=== PATIENT | female | born 1990 | race Asian ===

== ENCOUNTER 2023-09-02 09:11 | Outpatient (REF) | payer OTHER, SELFPAY ==
--- NOTE | ~2023-09-02 | US_ITS ---
EXAMINATION: US PELVIS CLINICAL INFORMATION: Long IUD string on exam. Assess IUD position LMP: Approximately one month prior COMPARISON: None available. TECHNIQUE: Ultrasound of the pelvis is performed using both transabdominal and transvaginal transducers along with Doppler. Transvaginal imaging is performed due to inadequate visualization transabdominally. FINDINGS: Uterus: The uterus is anteverted and measures 8.0 x 3.6 x 5.1 cm. No focal fibroid. The endometrial thickness is 0.4 cm. The IUD appears in proper position. Adnexa: Both ovaries are visualized. There is normal color flow to the adnexa. There is no ovarian torsion. Right ovary measures 5.2 x 3.0 x 4.5 cm. Volume 37.0 mL. 2.4 x 1.7 x 2.6 cm mildly complex cyst is seen in the right ovary. This is possibly hemorrhagic in origin. Left ovary measures 3.3 x 1.7 x 1.8 cm. Volume 5.2 mL. A small amount of free fluid seen within the cul-de-sac. US/US pelvic and transvaginal IMPRESSION: 1. Normal uterus and left ovary. 2. The IUD appears in proper position. 3. 2.6 cm mildly complex right ovarian cyst. This is possibly hemorrhagic in origin. Follow-up in 4-6 weeks after the patient's next menses could be performed.
== END 2023-09-02 09:12 | disposition home or self-care (01) ==
LOC: HO.UMASIMG 09:11
PROVIDERS: Visit Provider Nurse Practitioner Women's Health
DX: T83.32XA Displacement of intrauterine contraceptive device, initial encounter (principal)
CPT/HCPCS: 76830; 76856

== ENCOUNTER 2023-10-05 08:44 | Outpatient (REF) | payer OTHER, SELFPAY ==
--- NOTE | ~2023-10-05 | US_ITS ---
EXAMINATION: US PELVIS CLINICAL INFORMATION: Follow up right ovarian cyst, last menstrual period 09/15/2023. COMPARISON: None available. TECHNIQUE: Ultrasound of the pelvis is performed using both transabdominal and transvaginal transducers along with Doppler. Transvaginal imaging is performed due to inadequate visualization transabdominally. FINDINGS: Uterus is anteverted and measures 7.4 x 4.6 x 6.[address] within the endometrial cavity. No significant free fluid. Right ovary seen only on transabdominal ultrasound images and measures 3.0 x 1.5 by 2.5 cm, volume 5.9 mL Left ovary measures 2.2 x 3.6 x 2.6 cm, volume 107.7 mL. 1.2 x 1.6 x 1.3 cm complex left ovarian cyst appears diffusely heterogeneous with peripheral vascularity of indeterminate etiology. Recommend followup ultrasound in 6-8 weeks. US/US pelvic and transvaginal IMPRESSION: 1. IUD in place within the endometrial cavity. 2. 1.6 cm complex left ovarian cyst appears diffusely heterogeneous with peripheral vascularity of indeterminate etiology. Recommend followup ultrasound in 6-8 weeks.
== END 2023-10-05 08:45 | disposition home or self-care (01) ==
LOC: HO.UMASIMG 08:44
PROVIDERS: Visit Provider Nurse Practitioner Women's Health
DX: N83.201 Unspecified ovarian cyst, right side (principal)
CPT/HCPCS: 76830; 76856

== ENCOUNTER 2023-12-07 08:31 | Outpatient (REF) | payer OTHER, SELFPAY | END 2023-12-07 08:32 | disposition home or self-care (01) | LOC: HO.UMASIMG 08:31 | PROVIDERS: Visit Provider Family Medicine | DX: Z13.89 Encounter for screening for other disorder (principal) ==